=== PATIENT | female | born 1990 | race Caucasian/White ===

== ENCOUNTER 2018-04-05 17:50 | Outpatient (RCR) | payer OTHER, SELFPAY ==
[2018-03-15 09:34] VITALS: BMI 23.9
--- NOTE | 2018-04-05 18:35 | HP.PTEVAL ---
Patient's Visit Information KATLYN KUO is a 28 year old F referred to Physical Therapy by Vimal Leon MD with a diagnosis of L shoulder instability, impingement, calcific tendonitis. Date of Evaluation: 04/05/18 Physical Therapist: ANTHONY Grayson - Visit Plan Frequency: 2x /Week Duration: 4 Weeks Plan: 2X/ week for 4 weeks for L shoulder strengthening, scapular strengthening, postural exercises with HEP and modalities PRN - Subjective Findings: This happened a year ago... she slid on the ice a year ago and hurt it and hyper extended L shoulder to prevent from falling... had an MRI the other day...she has calcific tendonitis, impingement, and instability of the L shoulder. Her past experience with PT for her shoulder was not good. She had a steroid shot 3 weeks ago.. and it was slightly helpful. She has pulling when she tries to move. If she is sitting at her desk she feels like one muscle is too tight more in the shoulder blade. She has some tingles into her hands. She has neck pain but she has always had that. She is sleeping at night. She is able to lift with her L arm except with IR motion. Lifting overhead bothers her. She has pain when laying on L shoulder. She sleeps on her back. - Pain L shoulder Pain Intensity (Out of 10): 2 Pain Intensity Range: 5 Comment: with movement - Objective R handed: R 53# and L 50#. L shoulder AROM: full shoulder AROM and R shoulder AROM: full shoulder AROM. L shoulder MMT: Shld flex 4-/5, shld abd 4-/5, Shld ER 3+/5 and Shld IR 4-/5. R shloulder MMT: shld flex, abd, ER and IR 4/5. Posture: Sit with good posture. Palpation: tender L subscap and under acromion onthe L - Goals Goal 1:: I HEP Goal Time Frame: 4-6 Weeks Goal 2:: Decrease L shoulder pain 1/10 with movement and ADL's Goal Time Frame: 4-6 Weeks Goal 3:: Increase L shoulder strength to 4/5 L shoulder flex, abd, ER and IR Goal Time Frame: 4-6 Weeks - Rehabilitation Potential Rehabilitation Potential: Good - Anticipated Interventions Patient/Client Instruction: Educate patient on: Condition, Plan of Care For the Purpose of:: To decrease pain, To improve nutrient delivery to tissue, To improve muscle performance and motor function, To improve ability to perform ADL's, To increase tolerance to activity/condition/position, To improve performance and independence with ADL's, To improve ability of physical actions for home/community/work/leisure, To improve health of tissue Therapeutic Exercise to Include: Strength training, Postural training, Active ROM, Scapular Strength/Stabilization For the Purpose of:: To decrease pain, To improve nutrient delivery to tissue, To improve muscle performance and motor function, To improve ability to perform ADL's, To increase tolerance to activity/condition/position, To improve performance and independence with ADL's Manual Therapy Techniques to Include: Soft tissue mobilization For the Purpose of:: To decrease pain, To improve nutrient delivery to tissue IF ES: Yes Cryotherapy (ice pack, ice massage): Yes Thermo therapy (hot pack): Yes Ultrasound (thermal/non thermal): Yes For the Purpose of:: To decrease pain, To increase ROM, To improve nutrient delivery to tissue Thank you for the opportunity to evaluate your patient. For Medicare and Medicare HMO plans, please review the plan of care and approve it. It will need to be FAXED BACK to us at [phone] for Medicare purposes. For Medicare only, by signing this I certify the plan of care. Please let me know if there are questions or concerns regarding this plan of care. Physician Signature: Date:
--- NOTE | 2018-06-09 09:17 | HP.PT.NRP ---
HP - Discharge Summary (1) - Patient Information KATLYN KUO was seen in my office for initial evaluation on 04/05/18. The following Plan of Care was established for this patient: Initial Frequency: 2x /Week Initial Duration: 4 Weeks - Anticipated Interventions Patient/Client Instruction: Educate patient on: Condition, Plan of Care For the Purpose of:: To decrease pain, To improve nutrient delivery to tissue, To improve muscle performance and motor function, To improve ability to perform ADL's, To increase tolerance to activity/condition/position, To improve performance and independence with ADL's, To improve ability of physical actions for home/community/work/leisure, To improve health of tissue Therapeutic Exercise to Include: Strength training, Postural training, Active ROM, Scapular Strength/Stabilization For the Purpose of:: To decrease pain, To improve nutrient delivery to tissue, To improve muscle performance and motor function, To improve ability to perform ADL's, To increase tolerance to activity/condition/position, To improve performance and independence with ADL's Manual Therapy Techniques to Include: Soft tissue mobilization For the Purpose of:: To decrease pain, To improve nutrient delivery to tissue IF ES: Yes Cryotherapy (ice pack, ice massage): Yes Thermo therapy (hot pack): Yes Ultrasound (thermal/non thermal): Yes For the Purpose of:: To decrease pain, To increase ROM, To improve nutrient delivery to tissue This patient was last seen in our office 04/05/18. Pertinent comments regarding their Physical therapy will appear below: Pt cancelled her second appointment with us and did not come back after her initial evaluation. She will be discharged at this time. At this point I will be discontinuing this patient from physical therapy. I would be happy to see this patient again in the future if found appropriate by the physician. Thank you! Vilma Davis, MPT
== END 2018-04-05 19:00 | disposition home or self-care (01) ==
LOC: PT 17:50
PROVIDERS: Family Provider Family Medicine; PCP Family Medicine; Referring Provider Orthopaedic Surgery Hand Surgery; Visit Provider Orthopaedic Surgery Hand Surgery
DX: M25.312 Other instability, left shoulder (principal); M75.42 Impingement syndrome of left shoulder; M75.32 Calcific tendinitis of left shoulder
CPT/HCPCS: 97161

== ENCOUNTER → 2020-11-16 | Outpatient (CLI) | payer MEDICAID, SELFPAY | END | disposition home or self-care (01) | PROVIDERS: PCP Family Medicine; Referring Provider Physician Assistant Medical; Visit Provider Physician Assistant Medical | DX: U07.1 COVID-19 (principal) | CPT/HCPCS: 87635; U0005; U0003 ==